=== PATIENT | male | born 1960 | race Caucasian/White ===

== ENCOUNTER 2016-06-17 01:14 | Observation (INO) | payer OTHER ==
--- NOTE | ~2016-06-17 | CR63 ---
[facility] A Service of [facility] & [facility] RADIOLOGY TEXT RESULTS PATIENT: SONNY RICHARD LOCATION: [place] [address]- : [birth year] UNIT #: [id number] AGE: [address]: David Melchor MD SEX: M ORDER DR: [id number] [facility] [address]. [place], [place] [address] [id number] I MR#: [id number] Acc #: [id number] NAME: SONNY RICHARD. : 1960 SEX: M STUDY DATE/TIME: 06/18/2016 13:38 UNIT: [facility] ROOM: [facility] STUDY DESCRIPTION: CR Chest 2 View Attending Physician: David Melchor M.D. Ordering Physician: [facility] Primary Care Physician: Primary Care Physician No MEDICAL IMAGING REPORT This report is preliminary unless electronic signature is present EXAM Chest 2 views, 06/18/2016 13:38 hours HISTORY 56-year-old man with shortness of air, fever and dizziness for 6 days. COMPARISON 06/17/2016 FINDINGS Upright PA and lateral views of the chest demonstrate normal cardiac, mediastinal and hilar contours. Lungs are clear of acute densities. There is no pleural effusion or pneumothorax. IMPRESSION No acute cardiopulmonary findings. No appreciable change from 06/17/2016. Dictated by... Tanya Hsu M.D. THIS IS AN ELECTRONICALLY VERIFIED REPORT Tanya Hsu M.D. at 06/19/2016 9:43 AM Missy TD: 06/18/2016 15:05 JOB #: [id number] MEDICAL IMAGING REPORT Page 1 of 1 COPY
--- NOTE | ~2016-06-17 | EKG ---
PATIENT: SONNY RICHARD UNIT #: [id number] Ventricular Rate: 98 BPM Atrial Rate: 98 BPM P-R Interval: 150 ms QRS Duration: 104 ms Q-T Interval: 354 ms QTC Calculation(Bezet): 451 ms P [place]: 55 degrees Calculated R [place]: 22 degrees Calculated T [place]: 99 degrees Diagnosis Line: Normal sinus rhythm Diagnosis Line: T wave abnormality, consider inferior ischemia T Diagnosis Line: wave abnormality, consider lateral ischemia Diagnosis Line: Abnormal ECG Diagnosis Line: No previous ECGs available Diagnosis Line: Confirmed by ADRYAN COCHRAN MD ([id number]) on 06/18/2016 Diagnosis Line: 9:33:54 AM INTERPRETING MD: SAMMIE NICHOLAS
--- NOTE | ~2016-06-17 | HP ---
Unit #: [id number] #: [id number] Patient: SONNY RICHARD [id number] [address] [place], [place] [address] [id number] I MR#: [id number] NAME: SONNY RICHARD. ROOM: [address] Age: 56 Sex: M Admission Date: 06/17/2016 : 1960 Attending Physician: Shante Soto M.D. Primary Care Physician: No Primary Care Physician HISTORY AND PHYSICAL CHIEF COMPLAINT Postural lightheadedness and syncope with influenza B. HISTORY This 56-year-old male with CAD, COPD, AODM, hypertension, is admitted for influenza, postural lightheadedness and syncope. The patient was in his usual state of health until six days prior to admission when he developed a sore throat, nausea, vomiting, diarrhea, head congestion, deep cough productive of purulent sputum. Has been experiencing fevers, sweats and myalgias. Notes increasing postural lightheadedness. Yesterday when standing he had two syncopal episodes preceded by lightheadedness. He was brought to this emergency department last evening with a heart rate of 102, blood pressure of 109/72. He is orthostatic on exam. Lab work is notable for a potassium of 2.9 and patient is influenza B positive. Again he has very purulent sputum production, although chest x-ray is negative. In the ER he currently is being boluses with normal saline. PAST MEDICAL HISTORY 1. CAD with NE x3 and PCI and stent x3 per patient's report. 2. CVA without residual symptoms. 3. COPD. 4. Chronic low back pain. 5. Depression. 6. AODM. 7. Hypertension. 8. Thumb surgery. 9. Appendectomy. ALLERGIES No known drug allergies. HOME MEDICATIONS Zoloft 100 mg b.i.d.; Wellbutrin XL 150 mg two tablets daily; Lipitor 80 mg q.h.s.; lisinopril 2.5 mg daily; Plavix 75 mg daily; Aricept 10 mg q.h.s.; metformin 1,000 mg b.i.d.; Toprol XL 25 mg daily; Seroquel 200 mg q.h.s.; Cardura 4 mg daily; ibuprofen as needed; Klonopin 1 mg daily; Neurontin 800 mg q.i.d.; hydrocodone 10 mg q.6 hours as needed. FAMILY HISTORY CAD. SOCIAL HISTORY Unit #: [id number] #: [id number] Patient: SONNY RICHARD The patient lives with his girlfriend and children. He was smoking 4 to 5 packs per day of tobacco until New Years when he cut down to two three cigarettes daily. Does not drink alcohol. REVIEW OF SYSTEMS Notable for productive cough, head congestion, fever, sweats, chills, myalgias, lightheadedness, syncope, CAD, CVA, COPD, tobacco, back pain, depression, diabetes, neuropathy, hypertension, above mentioned surgeries. All other systems were reviewed and are otherwise negative. PHYSICAL EXAMINATION GENERAL: Pleasant, ill-appearing 56-year-old male. VITAL SIGNS: Temperature 97.9, pulse 102, respirations 19, blood pressure 109/72. HEENT: Eyes - PERRLA. Extraocular muscles are intact. Pharynx - poor dentition. NECK: Supple without adenopathy or thyromegaly. CHEST: Reveals mild expiratory wheeze, some rhonchi. CARDIAC: Normal S1 and S2 without S3, S4 or murmur. ABDOMEN: Bowel sounds are present. No hepatosplenomegaly, tenderness, or masses. EXTREMITIES: Without clubbing, cyanosis or edema. Pedal pulses are present. NEUROLOGIC: Patient is awake, alert, and oriented. Cranial nerves are intact. Equal strength throughout, but quite weak on exam. DIAGNOSTIC STUDIES ADMISSION LABS: Hematocrit is 38.8, normal white count and platelet count. Negative cardiac markers. Normal coags. SMA 12 - glucose 233, sodium 130, potassium 2.9, chloride 94, lipase 126, but has a nontender abdomen. Influenza serology positive for influenza B. Urine tox screen positive for TCA. Urinalysis - positive leukocytes esterase and glucose, 5-10 white cells, no red cells. Cardiac markers are negative. IMAGING STUDIES: Chest x-ray - no acute disease. CARDIOLOGY STUDIES: EKG - normal sinus rhythm, rate 98, T wave abnormalities noted laterally. Mild T wave abnormalities noted inferiorly as well. ASSESSMENT 1. Postural lightheadedness and syncope. Patient is orthostatic in the ER. This is secondary to nausea, vomiting and diarrhea. 2. Influenza B with very purulent sputum in patient with COPD. 3. CAD with reported NE x3 and PCI and stent x3. 4. AODM. 5. Hypertension. 6. Prior CVA without residual symptoms. 7. Hypokalemia. PLAN 1. IV fluids, hold antihypertensive medications for low blood pressure. 2. Replace potassium and check magnesium. 3. Tamiflu and doxycycline, along with supportive treatment. 4. Sliding scale insulin and hold Neurontin for now. Unit #: [id number] #: [id number] Patient: SONNY RICHARD Dictated by Shante Soto M.D. AML/ts TD: 06/17/2016 06:25 JOB #: [id number] HISTORY AND PHYSICAL Page 1 of 1 X Shante Soto MD X HISTORY AND PHYSICAL
--- NOTE | ~2016-06-17 | DS ---
Unit #: [id number] #: [id number] Patient: SONNY RICHARD [id number] [address] [address] [id number] I MR#: [id number] NAME: SONNY RICHARD. ROOM: 47 Age: 56 Sex: M Admission Date: 06/17/2016 : 1960 Discharge Date: 06/18/2016 Attending Physician: David Melchor M.D. DISCHARGE SUMMARY DISCREPANCY IN GENDER. PRIMARY CARE PHYSICIAN He goes to the [facility]. DISCHARGE DIAGNOSES 1. Syncope due to orthostatic hypotension; will be discontinuing the patient's Cardura. 2. Influenza B; will be discharged with Tamiflu for a total of 5 days. The patient is not hypoxic at this time. 3. History of coronary artery disease. No chest pain during this hospitalization. 4. History of type 2 diabetes. Will be resuming his metformin upon discharge. 5. Essential hypertension. Blood pressure has been stable during this hospitalization with an exception of his orthostatic. 6. Prior cerebrovascular accident. No focal deficits at this time. 7. Hypokalemia and hypomagnesemia, replaced and stable at this time. CONSULTANTS None. PROCEDURES None. DIAGNOSTIC STUDIES IMAGING STUDIES: Consist of a chest x-ray that was done on 06/17/2016; impression, no active disease. LABORATORY RESULTS: The patient's labs at this time include BMP with a glucose of 222, BUN of 9, creatinine 0.7, sodium 131, potassium 3.4, chloride 103, CO2 of 23, calcium 8.0, magnesium 1.8, total protein was 7.1, albumin was 3.5, total bilirubin was 1.2, AST was 14, ALT of 15, alkaline phosphatase of 69, lipase 126. CBC with WBC of 6.0, RBC of 4.19, hemoglobin is 11.4, hematocrit is 33.8, MCV is 80.8, MCH is 27.1, MCHC is 33.6, RDW is 13.4, platelets are 155, MPV is 8.2. HOSPITAL COURSE The patient is a 56-year-old male with a past medical history of coronary artery disease, type 2 diabetes, essential hypertension, who presented to the emergency department with a 6-day symptoms of sore throat, nausea, vomiting, diarrhea, sinus congestion, and deep cough with production of purulent sputum. He was experiencing fevers, sweats, and malaise. He had Unit #: [id number] #: [id number] Patient: SONNY RICHARD noted increasing postural lightheadedness. The day before prior to hospitalization when standing, he had 2 syncopal episodes preceded with lightheadedness, who was brought to the emergency department where his heart rate was 102, blood pressure was 109/72. He was orthostatic on exam. Lab work was notable for a potassium of 2.9 and the patient was positive for influenza B. Chest x-ray was negative. He was given normal saline. On the following day, he was still quite dizzy and orthostatic. Blood pressure sitting systolic was 103, but standing was down to 88. I will be adjusting the patient's medicines upon discharge with reduction of his Toprol to 25 mg orally daily and to hold for systolic blood pressure of less than 110 and will be discontinuing the Cardura that he is on 4 mg at night. With regard to his influenza, the patient tells me that he feels much better. He is not oxygen dependent at this time. I will continue with treatment of Tamiflu for a total of 5 days and we will continue with treatment of doxycycline for a total of 5 days as well. DISCHARGE CONDITION Stable. DISCHARGE INSTRUCTIONS He is to follow up with primary care physician within 1 to 2 weeks. DIET Resume heart healthy diet with consistent carb per [place] [employer] recommendation. ACTIVITIES Resume activity as was prior to the hospitalization with ambulating everyday as tolerated. The patient was instructed to remain at home until he is fever free for at least 24 hours. DISCHARGE MEDICATIONS Continue with Combivent inhaler 2 puffs inhaled q.i.d.; Symbicort 160 mcg 2 puffs inhaled b.i.d.; gabapentin, resume his home dosage q.i.d.; Wellbutrin, resume home dosage orally daily; sertraline 100 mg orally b.i.d.; metformin 1000 mg orally b.i.d. He can continue with Claritin 10 mg orally daily as well as Mucinex one tablet orally b.i.d.; Seroquel 200 mg orally at bedtime; Tamiflu 75 mg orally b.i.d. for the next 4 days; Klonopin 1 mg orally daily and Toprol will be reducing from 25 to 12.5 mg orally daily and hold for systolic blood pressure less than 110 mmHg; Aricept 10 mg orally at bedtime; Lipitor 80 mg orally daily; stop Cardura; lisinopril 2.5 mg orally daily; ibuprofen 800 mg orally b.i.d. as needed for pain; hydrocodone 10/325 one tablet q.i.d. as needed for pain; Plavix 75 mg orally daily; doxycycline 100 mg orally b.i.d. for the next 4 days. Dictated by... Pascale Stewart PA-C for Lito Rizo/ramana TD: 06/19/2016 02:20 JOB #: [id number] Unit #: [id number] #: [id number] Patient: SONNY RICHARD Shiv DISCHARGE SUMMARY Page 1 of 1 X X DISCHARGE SUMMARY
--- NOTE | ~2016-06-17 | CR72 ---
[facility] A Service of [facility] & [facility] RADIOLOGY TEXT RESULTS PATIENT: SONNY RICHADR LOCATION: [place] [address] : [birth year] UNIT #: [id number] AGE: [address]: David Melchor MD SEX: M ORDER DR: [id number] [facility] [address] [place], [place] [address] [id number] I MR#: [id number] Acc #: [id number] NAME: SONNY RICHARD. : 1960 SEX: M STUDY DATE/TIME: 06/17/2016 1:20 UNIT: CEDOF ROOM: [address] STUDY DESCRIPTION: CR Chest Single View Portable Attending Physician: Shante Soto M.D. Ordering Physician: Jose Roberto Gonsalez D.O. Primary Care Physician: No Primary Care Physician MEDICAL IMAGING REPORT This report is preliminary unless electronic signature is present EXAM AP portable chest 06/17/2016 HISTORY 56-year-old male in the ED complaining of a 5 day history of fever, flu-like symptoms. He reports a syncopal episode and dizziness. TECHNIQUE AP portable upright chest x-ray. FINDINGS No active disease in the chest. Heart size and pulmonary vascularity are normal. The lungs are expanded and clear. Benign calcified granulomas in the left hilum. IMPRESSION No active disease. Dictated by... Donavan Sánchez M.D. THIS IS AN ELECTRONICALLY VERIFIED REPORT Donavan Sánchez M.D. at 06/17/2016 9:54 PM RGW/kristy TD: 06/17/2016 07:15 JOB #: [id number] MEDICAL IMAGING REPORT Page 1 of 1 COPY
[~2016-06-17 01:14] MED LIST: AFREZZA1 EAC1; FLONASE 0.05% N16 G1; GABAPENTIN800 MG PO; LIPITOR80 MG PO; LORTAB 10-3251 EACH; NITRO DUR; PREDNISONE PO; ROBAXIN500 MG PO; SEROQUEL PO; TOPROL XL PO; ZOLOFT100 MG PO; [UNRECOGNIZED DRUG - OTHER]; [UNRECOGNIZED DRUG - REMARK]
[2016-06-17 02:07] LABS: POC - CKMB <1.0 ng/mL (0.0-7.9); POC - TROPONIN <0.05 ng/mL (<=0.05)
[2016-06-17 02:37] LABS: BASOPHIL% 0.2 % (0-2.5); EOSINOPHIL% 0.1 % (0.0-7.0); HEMATOCRIT 38.8 % (38.0-50.0); LYMPHOCYTE# 1.1 X10e3 (1.0-3.5); LYMPHOCYTE% 14.3 % (17.0-45.0); MEAN CELL VOLUME 80.6 FL (83-96); MEAN CORPUSCULAR HGB CONC 33.6 g/dL (30-36); MEAN PLATELET VOLUME 9.2 FL (6.5-11.5); MONOCYTE# 0.6 X10e3 (0-1.0); MONOCYTE% 8.1 % (3.0-12.0); NEUTROPHIL# 6.2 X10e3 (1.5-7.1); NEUTROPHIL% 77.3 % (40-75); PLATELET COUNT 149 X10e3 (140-420); RED BLOOD COUNT 4.82 X10e (3.90-5.60); RED CELL DISTRIBUTION WIDTH 13.2 % (11.0-15.5)
[2016-06-17 02:40] LABS: DIFF IND NO
[2016-06-17 02:49] LABS: PARTIAL THROMBOPLASTIN TIME 28.9 SECONDS (23.5-31.3); PROTHROMBIN TIME (PATIENT) 10.6 SECONDS (9.6-11.5)
[2016-06-17 03:00] LABS: INFLUENZA A NEG (NEG); INFLUENZA B POS (NEG)
[2016-06-17 03:00] LABS: ALBUMIN SERUM 3.5 g/dL (3.5-5.0); ALKALINE PHOSPHATASE 69 U/L (32-92); ALT (SGPT) 15 U/L (10-40); AST (SGOT) 14 U/L (10-42); BILIRUBIN, DIRECT 0.2 mg/dL (0.0-0.2); BILIRUBIN,TOTAL 1.2 mg/dL (0.2-2.0); BLOOD UREA NITROGEN 20 mg/dL (9-23); BUN/CREATININE RATIO 22.22; CALCIUM SERUM 8.6 mg/dL (8.4-10.2); CARBON DIOXIDE 23 mmol/L (22-31); CHLORIDE 94 mmol/L (100-111); CREATININE SERUM 0.9 mg/dL (0.6-1.4); GLOM FILT RATE Estimated ABOVE60 mL/min (>60); GLUCOSE FASTING 233 mg/dL (70-110); LIPASE 126 U/L (22-51); POTASSIUM 2.9 mmol/L (3.5-5.1); PROTEIN TOTAL SERUM 7.1 g/dL (6.0-8.3); SODIUM 130 mmol/L (135-145)
[2016-06-17 03:18] LABS: URINE SOURCE CLEAN CATCH
[2016-06-17 03:23] LABS: URINE APPEARANCE CLEAR; URINE BILIRUBIN NEG (NEG); URINE BLOOD NEG (NEG); URINE COLOR YELLOW; URINE GLUCOSE >1000 MG/DL (NEG); URINE KETONE 2+ (NEG); URINE LEUKOCYTE ESTERASE 1+ (NEG); URINE NITRATE NEG (NEG); URINE PH 5.5 (5-8); URINE PROTEIN TRACE (NEG); URINE SPECIFIC GRAVITY 1.018 (1.003-1.035); URINE UROBILINOGEN 0.2 MG/DL (NEG)
[2016-06-17 03:26] LABS: CULTURE INDICATED? YES; URBCS1 AUWI 0-2 /[HPF] (0-2); URINE BACTERIA AUWI NEG (NEGATIVE); URINE SQUAMOUS EPITHELIAL CELL FEW /[HPF]
[2016-06-17 03:32] LABS: AMPHETAMINE NEG (NEG); BARBITURATES NEG (NEG); BENZODIAZEPINES NEG (NEG); COCAINE NEG (NEG); MARIJUANA NEG (NEG); OPIATES NEG (NEG); TRICYCLIC ANTIDEPRESSANTS POS (NEG); U METHADONE NEG (NEG)
[2016-06-17] MEDS ORDERED: WELLBUTRIN XL150 M2 PO (13:37)
[2016-06-17] MEDS ORDERED: LISINOPRIL2.5 MG PO (13:38)
[2016-06-17] MEDS ORDERED: CLOPIDOGREL75 MG PO (13:39)
[2016-06-17] MEDS ORDERED: DONEPEZIL HCL10 MG PO (13:40)
[2016-06-17] MEDS ORDERED: METFORMIN PO (13:41)
[2016-06-17] MEDS ORDERED: CARDURA4 M1 PO (13:41)
[2016-06-17] MEDS ORDERED: IBUPROFEN PO (13:43)
[2016-06-17] MEDS ORDERED: KLONOPIN1 MG PO (13:45)
[2016-06-17] MEDS ORDERED: HYDROCODON-ACE1 EAC5 PO (13:46)
[2016-06-17 14:04] LABS: BASOPHIL% 0.2 % (0-2.5); HEMATOCRIT 38.2 % (38.0-50.0); HEMOGLOBIN 12.8 gm/dL (13.0-16.0); LYMPHOCYTE# 1.2 X10e3 (1.0-3.5); LYMPHOCYTE% 13.8 % (17.0-45.0); MEAN CELL VOLUME 80.8 FL (83-96); MEAN CORPUSCULAR HEMOGLOBIN 27.2 PG (28-34); MEAN CORPUSCULAR HGB CONC 33.6 g/dL (30-36); MEAN PLATELET VOLUME 8.4 FL (6.5-11.5); MONOCYTE# 0.6 X10e3 (0-1.0); MONOCYTE% 7.3 % (3.0-12.0); NEUTROPHIL# 6.6 X10e3 (1.5-7.1); NEUTROPHIL% 78.7 % (40-75); PLATELET COUNT 154 X10e3 (140-420); RED BLOOD COUNT 4.73 X10e (3.90-5.60); RED CELL DISTRIBUTION WIDTH 13.2 % (11.0-15.5); WHITE BLOOD COUNT 8.4 X10e3 (4.0-10.5)
[2016-06-17 14:05] LABS: DIFF IND NO
[2016-06-17 14:27] LABS: BUN/CREATININE RATIO 18.75; CALCIUM SERUM 8.4 mg/dL (8.4-10.2); CREATININE SERUM 0.8 mg/dL (0.6-1.4); GLOM FILT RATE Estimated 100.6 mL/min (>60); POTASSIUM 3.1 mmol/L (3.5-5.1)
[2016-06-18 04:18] LABS: BASOPHIL% 0.4 % (0-2.5); EOSINOPHIL% 0.6 % (0.0-7.0); HEMATOCRIT 33.8 % (38.0-50.0); HEMOGLOBIN 11.4 gm/dL (13.0-16.0); LYMPHOCYTE# 1.3 X10e3 (1.0-3.5); LYMPHOCYTE% 22.3 % (17.0-45.0); MEAN CELL VOLUME 80.8 FL (83-96); MEAN CORPUSCULAR HEMOGLOBIN 27.1 PG (28-34); MEAN CORPUSCULAR HGB CONC 33.6 g/dL (30-36); MEAN PLATELET VOLUME 8.2 FL (6.5-11.5); MONOCYTE# 0.6 X10e3 (0-1.0); MONOCYTE% 9.3 % (3.0-12.0); NEUTROPHIL% 67.4 % (40-75); PLATELET COUNT 155 X10e3 (140-420); RED BLOOD COUNT 4.19 X10e (3.90-5.60); RED CELL DISTRIBUTION WIDTH 13.4 % (11.0-15.5)
[2016-06-18 04:19] LABS: DIFF IND NO
[2016-06-18 04:39] LABS: BUN/CREATININE RATIO 12.85; CREATININE SERUM 0.7 mg/dL (0.6-1.4); GLOM FILT RATE Estimated 106.3 mL/min (>60); MAGNESIUM 1.8 mg/dL (1.6-3.0); POTASSIUM 3.4 mmol/L (3.5-5.1)
[2016-06-18] MEDS ORDERED: ALB/IPRATROPIUM/1 E1 INH (14:18)
[2016-06-18] MEDS ORDERED: SYMBICORT INH (14:19)
[2016-06-18] MEDS ORDERED: HUMIBID-LA600 MG PO (14:21)
[2016-06-18] MEDS ORDERED: TAMIFLU75 M1 PO (14:22)
[2016-06-18] MEDS ORDERED: DOXYCYCLINE HY100 M3 PO (14:22)
[2016-06-18] MEDS ORDERED: CLARITIN10 M2 PO (14:26)
[2016-06-18 14:51] LABS: CK TOTAL 47 IU/L (36-174)
== END 2016-06-18 15:03 | disposition home or self-care (01) ==
LOC: CED 01:14 → CEDOF 04:45 → C4C 08:38
PROVIDERS: Emergency Medicine; Internal Medicine; Physician Assistant Medical
DX: I95.1 Orthostatic hypotension (principal); J10.1 Influenza due to other identified influenza virus with other respiratory manifestations; I25.10 Atherosclerotic heart disease of native coronary artery without angina pectoris; E11.9 Type 2 diabetes mellitus without complications; Z79.84 Long term (current) use of oral hypoglycemic drugs; I10 Essential (primary) hypertension; Z86.73 Personal history of transient ischemic attack (TIA), and cerebral infarction without residual deficits; E87.6 Hypokalemia; E83.42 Hypomagnesemia; F17.210 Nicotine dependence, cigarettes, uncomplicated; J44.9 Chronic obstructive pulmonary disease, unspecified; I25.2 Old myocardial infarction; Z95.5 Presence of coronary angioplasty implant and graft
CPT/HCPCS: 36415; 71010; 71020; 80048; 80076; 80307; 81003; 82550; 82553; 82947; 83690; 83735; 84484; 85025; 85610; 85730; 87086; 87088; 87804; 93005; 94640; 94760; 96360; 96361; 96365; 96366; 99285; G0378; J1815; J3475

== ENCOUNTER 2016-12-12 21:18 | Emergency (ER) | payer OTHER ==
[~2016-12-12] VITALS: Ht 172.7 cm; Wt 77.1 kg
--- NOTE | ~2016-12-12 | CR123 ---
[facility] A Service [facility] RADIOLOGY TEXT RESULTS PATIENT: SONNY RICHARD LOCATION: SED : 62 UNIT #: [id number] AGE: [address]: Kulwinder Urbano MD SEX: M ORDER DR: [id number] [place] [address] [id number] MR#: [id number] Acc #: [id number] NAME: SONNY RICHARD. : 1960 SEX: M STUDY DATE/TIME: 12/12/2016 21:56 UNIT: SED ROOM: STUDY DESCRIPTION: CR Foot 2 Views Lt Attending Physician: Kulwinder Urbano M.D. Ordering Physician: Kulwinder Urbano M.D. Primary Care Physician: Primary Care Physician No MEDICAL IMAGING REPORT This report is preliminary unless electronic signature is present. EXAM Left foot 2 views HISTORY Foot pain for 2 weeks. Dropped object on foot. FINDINGS Two views of the left foot demonstrate no acute fracture, or joint space narrowing or dislocation. Small posterior calcaneal spur. Mild degenerative arthritis at the fourth MTP joint with chronic flattening of the articular surface of the fourth metatarsal head, likely secondary to chronic avascular necrosis. IMPRESSION 1. No acute finding. No recent fracture. 2. Mild degenerative changes at the fourth MTP joint with findings of chronic avascular necrosis along the distal articular margin of the fourth metatarsal head. Dictated by... Conrado Miranda M.D. THIS IS AN ELECTRONICALLY VERIFIED REPORT Conrado Miranda M.D. at 12/13/2016 3:38 PM DFL/cmm TD: 12/13/2016 12:03 JOB #: [id number] [facility] A Service [facility] RADIOLOGY TEXT RESULTS PATIENT: SONNY RICHARD LOCATION: SED : 62 UNIT #: [id number] AGE: [address]: Kulwinder Urbano MD SEX: M ORDER DR: MEDICAL IMAGING REPORT Page 1 of 1
[~2016-12-12 21:18] MED LIST changes: +ALB/IPRATROPIUM/1 E1 INH; +CARDURA4 M1 PO; +CLARITIN10 M2 PO; +CLOPIDOGREL75 MG PO; +DONEPEZIL HCL10 MG PO; +DOXYCYCLINE HY100 M3 PO; +HUMIBID-LA600 MG PO; +HYDROCODON-ACE1 EAC5 PO; +IBUPROFEN PO; +KLONOPIN1 MG PO; +LISINOPRIL2.5 MG PO; +METFORMIN PO; +SYMBICORT INH; +TAMIFLU75 M1 PO; +WELLBUTRIN XL150 M2 PO
[2016-12-12] MEDS ORDERED: NOT SURE OF MEDS (21:35)
== END 2016-12-12 23:15 | disposition home or self-care (01) ==
LOC: SED 21:18
DX: S90.32XA Contusion of left foot, initial encounter (principal); M77.52 Other enthesopathy of left foot and ankle; W20.8XXA Other cause of strike by thrown, projected or falling object, initial encounter; Y92.009 Unspecified place in unspecified non-institutional (private) residence as the place of occurrence of the external cause; F17.210 Nicotine dependence, cigarettes, uncomplicated
CPT/HCPCS: 73620; 99283